=== PATIENT | female | born 1960 ===

== ENCOUNTER 2025-05-09 13:12 | Outpatient (REF) | payer MEDICARE, SELFPAY ==
--- OUTSIDE RECORDS SUMMARY | 2025-05-09 14:20 | XMS_ITS | Clinical Summary ---
Author Organization [facility] Address [address] [place] [address] Phone Care Team Providers Care Anchor Tacker Name Role Phone Vazquez Rubio MD Primary Care Provider [phone] Allergies Active Allergy Reactions Criticality Noted Date Comments Amoxicillin Rash 11/26/2005 Indomethacin Rash 11/26/2005 Other 07/18/2024 Seasonal allergies Pollen Extracts 07/16/2017 Medications albuterol HFA (PROAIR HFA ; PROVENTIL HFA ; VENTOLIN HFA) 90 mcg/actuation inhaler Inhale 2 puffs by mouth. 4 Active cholecalciferol (VITAMIN D-3) 25 mcg (1,000 unit) capsule Take 1 capsule (1,000 Units total) by mouth 1 (one) time each day. 4 Active fluticasone propionate (FLONASE) 50 mcg/actuation nasal spray Sig - Route: 1-2 Sprays by Each Nare route at bedtime as needed for Rhinitis. - Each Nare Sent to pharmacy as: Fluticasone Propionate 50 MCG/ACT Nasal Suspension 4 Active cetirizine (ZyrTEC) 10 mg tablet Take 1 tablet (10 mg total) by mouth 1 (one) time each day. 4 Active citalopram (CeleXA) 40 mg tablet Take 1 tablet (40 mg total) by mouth 1 (one) time each day. 90 tablet 1 5 Active amLODIPine (NORVASC) 5 mg tablet Take 1 tablet (5 mg total) by mouth 1 (one) time each day. 90 tablet 1 5 Active albuterol HFA (PROAIR HFA ; PROVENTIL HFA ; VENTOLIN HFA) 90 mcg/actuation inhaler Inhale 2 puffs by mouth every 6 (six) hours if needed for wheezing or shortness of breath. 6.7 g 5 Active tirzepatide, weight loss, (Zepbound) 2.5 mg/0.5 mL solutionIndicat ions:Class 2 obesity due to excess calories without serious comorbidity with body mass index (BMI) of 37.0 to 37.9 in adult,Essential hypertension,Ob structive sleep apnea Inject 2.5 mg under the skin every 7 (seven) days. 2 mL 5 Active tiZANidine (ZANAFLEX) 2 mg tablet Take 1 tablet (2 mg total) by mouth at bedtime as needed for muscle spasms. 30 tablet 5 Active LORazepam (ATIVAN) 2 mg tablet TAKE 1/2 TABLET BY MOUTH IN THE MORNING AND 1 TABLET BY MOUTH AT BEDTIME NEEDED 42 tablet 5 025 Active LORazepam (ATIVAN) 2 mg tablet TAKE 1/2 TABLET BY MOUTH IN THE MORNING AND 1 TABLET BY MOUTH AT BEDTIME NEEDED 42 tablet 5 025 Discontin ued(Reord er) Active Problems Problem Noted Date Diagnosed Date Known medical problems 07/18/2024 Overview (07/18/2024): Dyspepsia and other specified disorders of function of stomach Class 2 obesity due to exces s calories without serious comorbidity with body mass index (BMI) of 37.0 to 37.9 in adult 07/18/2024 GERD (gastroesophageal reflux disease) 4 Known medical problems 07/18/2024 Overview (07/18/2024): Duodenitis without mention of hemorrhage COVID 06/15/2024 Overview (07/18/2024): Covid + 06/15/24 Anxiety 04/29/2022 Reactive airway disease 04/29/2022 Trouble in sleeping 04/29/2022 Depression 09/26/2020 Multiple thyroid nodules 08/07/2020 Vitamin D deficiency 05/27/2019 Lumbar facet arthropathy 07/21/2018 Lumbar radiculitis 07/21/2018 Allergic rhinitis 03/05/2016 Essential hypertension 02/19/2016 Obstructive sleep apnea 10/06/2011 Overview (06/10/2024): [facility] Home Sleep Apnea Test: Date 06/04/2019; Wt 206#; BMI 34; ALEXIA 7, AI 0.4; HI 6.5; Unclassified apneas 2; Obstructive apneas 1; Central apneas 0; Mixed apneas 0; hypopneas 49; average oxygen saturation 93% (lowest 85% without saturations <88% for 5% or more of study) - Obstructive Sleep Apnea - mild; mostly hypopneas; without sleep related hypoventilation by 2018 home sleep apnea test. Diverticulosis 12/10/2010 Overview (06/10/2024): Incidental finding at colonoscopy 12/10/2010. DJD (degenerative joint disease), lumbar 008 Hematuria 06/03/2006 Overview (06/10/2024): Work up neg 03/29; cytology & Cysto neg Duodenitis 02/10/2006 Overview (06/10/2024): H.pylori; Rx: 01/24 IMO update Gastric diverticulum 02/10/2006 Heartburn 11/26/2005 Encounters Date Type Department Care Team Description 03/30/2025 11:15 AM EDT Office Visit [facility] [address] [facility] [place] [address] Vazquez Rubio MD Anxiety (Primary Dx); Hearing loss of right ear, unspecified hearing loss type; Class 2 obesity due to excess calories without serious comorbidity with body mass index (BMI) of 37.0 to 37.9 in adult; Essential hypertension; Obstructive sleep apnea 03/30/2025 Telephone [facility] [address] [place] [address] Vazquez Rubio MD prior auth 03/30/2025 Telephone [address] [place] [place] [address] Vazquez Rubio MD Medication Problem 02/27/2025 Telephone [address] Medicine [address] [place] [address] Vazquez Rubio MD Results 02/21/2025 3:30 PM EDT Office [address] [facility] [address] [place] [phone] Brice Jonas PA Chronic left ear pain (Primary Dx); Myalgia 02/20/2025 Telephone Pediatrics [address] [address] Vazquez Rubio MD Earache from Last 3 Months Immunizations Name Administration Dates Next Due Influenza Quadravalent, MDCK , 0.5ml, with preservative (Flucelvax) 6mo and older 06/16/2020 Influenza trivalent, 0.5mL, preservative free (Fluarix; FluLaval; Fluzone) ages 6mo and older (Afluria) 3 years and older 11/29/2014,10/07/2012,10/06/2011,2010 Influenza, Unspecified 09/11/2022,11/11/2021 [employer] SARS-CoV-2 COVID-19, mRNA, LNP-S, preservative free 10/03/2021,10/29/2020 Tdap Tetanus diptheria acell ular pertussis (Boostrix; Adacel) 7yo and older 06/10/2018,10/01/2009 Zoster recombinant (Shingrix ) 19yo and older 10/14/2022,09/11/2022 Surgical History Surgery Date Site/Laterality Comments OTHER SURGICAL HISTORY 05/2007 PROCEDURE: MAMMOGRAM; COMMENT: IV; biopsy neg OTHER SURGICAL HISTORY 05/2007 PROCEDURE: PAP SMEAR (1 SLIDE); COMMENT: ; neg OTHER SURGICAL HISTORY PROCEDURE: ND LIG/TRNSXJ FLP TUBE ABDL/VAG APPR UNI/BI ESOPHAGOGASTRODUODENOSCOPY 01/2006 PROCEDURE: ND ESOPHAGOGASTRODUODENOSCOPY TRANSORAL DIAGNOSTIC; COMMENT: Delia Duodenitis COLONOSCOPY 12/10/2010 PROCEDURE: ND COLONOSCOPY FLX DX W/COLLJ SPEC WHEN PFRMD; COMMENT: minimal diverticulosis BREAST BIOPSY 2014 Left PROCEDURE: BX BREAST; PERC NEEDLE CORE W/IMAG GUID; COMMENT: left negative BREAST REDUCTION 11/04/2004 Bilateral PROCEDURE: ND BREAST REDUCTION; COMMENT: Red; reduction OTHER SURGICAL HISTORY PROCEDURE: ND BX BREAST W/DEVICE 1ST LESION STEREOTACTIC GUID; COMMENT: b9 ? which breast TUBAL LIGATION PROCEDURE: HISTORICAL TUBAL LIGATION COLONOSCOPY 12/2020 PROCEDURE: HISTORICAL COLONOSCOPY Medical History Medical History Date Comments Hematuria 06/03/2006 DX:Hematuria Obesity 10/06/2011 DX:Obesity Essential hypertension 02/19/2016 DX:Essent ial hypertension Multiple thyroid nodules 08/07/2020 DX:Mult iple thyroid nodules Depression 09/26/2020 DX:Depression History of Helicobacter pylo ri infection 02/26/2006 DX:History of Helicobacter p ylori infection; COMMENT: Delia 01/2006 History of basal cell carcinoma 02/24/2019 DX:History of basal cell carcinoma; COMMENT: L shoulder. Diverticulosis 12/10/2010 DX:Diverticulosi s; COMMENT: Incidental finding at colonoscopy 12/10/2010. Hematuria 06/03/2006 DX:Hematuria; CO MMENT: Work up neg 03/29; cytology & Cysto neg Family History Medical History Relation Name Comments Lung cancer Father Other cancer Father lung CA, Diabet es Breast cancer Father's side cousin 50s Lung cancer Father's side cousin 50s Hypertension Mother Cataract Breast cancer Mother's side cousin 55 1st cousin Other: Malignancy Other 1 Pat side; lung & GI Lung cancer Paternal Grandfather Blindness Neg Hx Glaucoma Neg Hx Macular degeneration Neg Hx Strabismus Neg Hx Relation Name Status Comments Father Father's side cousin 50s Alive Maternal Grandfather Maternal Grandmother Mother Alive Mother's side cousin 55 Alive Other 1 Other 2 Alive Paternal Grandfather Social History Tobacco Use Types Packs/Day Years Used Date Smoking Tobacco: Former Cigarettes Q uit: 08/21/2010 Smokeless Tobacco: Never Tobacco Cessation:Counseling Given: Not Answered Alcohol Use Standard Drinks/Week Comments No 0 (1 standard drink = 0.6 oz pur e alcohol) Comments No Sex and Gender Information Value Date Recorded Sex Assigned at Not on file Legal Sex Female 9:47 AM EST Gender Identity Not on file Sexual Orientation Not on file Obstetrics History Para Term AB IAB SAB Ectopic Multiple Livin g Live Births 2 2 2 2 Date Outcome GA Total Labor Labor/2nd/3rd Weight Sex Type Anes PTL Lesia A1 A5 Name Clin Term Term Last Filed Vital Signs Vital Sign Reading Time Taken Comments Blood Pressure 123/80 03/30/2025 11:06 AM EDT Pulse 78 03/30/2025 11:06 AM EDT Temperature 36.7 C (98.1 F) 02/21/2025 3:42 PM EDT Respiratory Rate - - Oxygen Saturation 96% 02/21/2025 3:42 PM EDT Inhaled Oxygen Concentration - - Weight 99 kg (218 lb 4.8 oz) 03/30/2025 11:06 AM EDT Height 165.1 cm (5' 5 ) 03/30/2025 11:06 AM EDT Body Mass Index 36.33 03/30/2025 11:06 AM EDT Plan of Treatment Upcoming Encounters Date Type Department Care Team (Late st Contact Info) Description 07/07/2025 5:30 PM EDT Appointment [facility] Scan [address] [place] [address] Health Maintenance Due Date Last Done Comments Pneumococcal Vaccine: 50+ Years (1 of 2 - PCV) 1979 Medicare Annual Wellness Visit 08/30/2022 Depression Screening 09/21/2024 Lung Cancer Screening (Low Dose CT) 07/08/2025 07/08/2024, 03/03/2023 Social Influencers of Health Screening 09/28/2025 09/28/2024 Colorectal Cancer Screening: Colonoscopy 01/02/2026 01/02/2021 Hypertension/CHF/CAD Annual BMP Blood Test 02/23/2026 02/23/2025, 09/28/2024, 10/22/2023 Breast Cancer Screening 10/14/2026 10/14/19 25, 10/13/2023, 08/15/2022, Additional history exists Cervical Cancer Screening: HPV 02/07/2028 02/06/2023 DTaP,Tdap,and Td Vaccines (3 - Td or Tdap) 06/10/2028 06/10/2018, 10/01/2009 Cholesterol Screening (Lipid Panel) 09/28/2029 09/28/2024, 12/02/2022 Hepatitis C Screening Completed 11/28/2013 COVID-19 Vaccine Discontinued 10/03/2021, 04/2021, 10/29/2020 Zoster Vaccines Completed 10/14/2022, 08/22, 06/30/2022 Influenza Vaccine Discontinued 09/26/2023, , 06/30/2022, Additional history exists RSV Immunization Adult Patients Completed 09/26/2023 HIB Vaccines Aged Out No longer eligi ble based on patient's age to complete this topic HIV Screening Discontinued HPV Vaccines Aged Out No longer eligi ble based on patient's age to complete this topic Hepatitis A Vaccines Aged Out No long er eligible based on patient's age to complete this topic Hepatitis B Vaccines Aged Out No long er eligible based on patient's age to complete this topic IPV Vaccines Aged Out No longer eligi ble based on patient's age to complete this topic MMR Vaccines Aged Out No longer eligi ble based on patient's age to complete this topic Meningococcal ACWY Vaccine Aged Out N o longer eligible based on patient's age to complete this topic Meningococcal B Vaccine Aged Out No l onger eligible based on patient's age to complete this topic RSV Immunization Patients Under 20 months Aged Out No longer eligible based on patient's age to complete this topic Varicella Vaccines Aged Out No longer eligible based on patient's age to complete this topic Procedures Procedure Name Priority Date/Time Associated Diagnosis Comments CBC WITH AUTO DIFFERENTIAL Routine 02/23/2025 3:13 PM EDT Chronic left ear pain Myalgia CBC AND DIFFERENTIAL Routine 02/23/2025 3:13 PM EDT Chronic left ear pain Myalgia COMPREHENSIVE METABOLIC PANEL Routine 02/23/2025 3:13 PM EDT Chronic left ear pain Myalgia THYROID STIMULATING HORMONE WITH REFLEX TO FREE T4 AND FREE T3 Routine 02/23/2025 3:13 PM EDT Chronic left ear pain Myalgia BORRELIA BURGDORFERI ANTIBODY Routine 02/23/2025 3:13 PM EDT Chronic left ear pain Myalgia JD IFA WITH TITER AND PATTERN Routine 02/23/2025 3:13 PM EDT Chronic left ear pain Myalgia C-REACTIVE PROTEIN Routine 02/23/2025 3: 13 PM EDT Chronic left ear pain Myalgia POC RAPID [id number], MOLECULAR Routine 02/21/2025 4:21 PM EDT Chronic left ear pain MG MAMMO DIGITAL SCREENING W AMANDEEP BILAT Routine 10/14/2024 2:52 PM EST Encounter for screening mammogram for breast cancer LIPID PANEL WITH REFLEX TO DIRECT LDL Routine 09/28/2024 3:41 PM EST Mixed hyperlipidemia CT LUNG SCREENING LOW DOSE Routine 07/08/2024 9:49 AM EDT Encounter for screening for malignant neoplasm of respiratory organs HM HPV Routine 02/06/2023 COLONOSCOPY Routine 01/02/2021 HEPATITIS C SCREENING Routine 11/28/2013 from Last 3 Months or Most Recently Relevant to Health Maintenance Results * Thyroid stimulating hormone with reflex to free t4 and free t3 (02/23/2025 3:13 PM EDT) TSH 1.04 0.40 - 4.00 mcIU/mL LAB CHEMISTRY METHOD 02/23/2025 7:19 PM EDT [facility] Blood Venous blood specimen / Unknown Venipuncture / Unknown 02/23/2025 3:13 PM EDT 02/23/2025 3:13 PM EDT Brice GALLEGOS LAB BLOOD ORDERABLES Final Result Performing Organization Address City/[facility]/ZIP Co de Phone Number [facility] [address] [place] [address], [place] [phone] * JD IFA with titer and pattern (02/23/2025 3:13 PM EDT) [facility] JD Negative Negative 02/24/2025 2:50 PM EDT [facility] Blood Venous blood specimen / Unknown Venipuncture / Unknown 02/23/2025 3:13 PM EDT 02/23/2025 3:13 PM EDT Brice GALLEGOS LAB BLOOD ORDERABLES Final Result Performing Organization Address [facility]/ZIP Co de Phone Number [facility] [address] [place] [address], [place] [phone] * (ABNORMAL) CBC auto differential (02/23/2025 3:13 PM EDT) [facility] WBC 6.5 4.8 - 10.8 K/mcL LAB HEMETOLOGY METHOD 02/23/2025 6:44 PM EDT [facility] RBC 4.50 3.80 - 4.80 M/mcL LAB HEMETOLOGY METHOD 02/23/2025 6:44 PM EDT [facility] Hemoglobin 13.1 11.5 - 16.0 g/dL LAB HEMETOLOGY METHOD 02/23/2025 6:44 PM EDT [facility] Hematocrit 41.1 35.0 - 47.0 % LAB HEMETOLOGY METHOD 02/23/2025 6:44 PM EDT [facility] MCV 90.5 79.0 - 98.0 FL LAB HEMETOLOGY METHOD 02/23/2025 6:44 PM EDT [facility] MCH 28.9 27.0 - 32.0 pcg LAB HEMETOLOGY METHOD [facility] MCHC 31.9(L) 32.0 - 37.0 g/dL LAB HEMETOLOGY METHOD 02/23[facility]2025 [facility] RDW 13.8 11.0 - 15.0 % LAB HEMETOLOGY METHOD 02/23[facility]2025 6[facility] Platelets 367 130 - 400 K/mcL LAB HEMETOLOGY METHOD 02/23[facility]2025 6[facility] MPV 10.3 7.0 - 11.0 FL LAB HEMETOLOGY METHOD 02/23[facility]2025 [facility] NRBC 0.0 <1.0 % LAB HEMETOLOGY METHOD 02/23/2025 6:44 PM [facility] NRBC Absolute 0.00 <0.10 K/mcL LAB HEMETOLOGY METHOD 02/23[facility]2025 [facility] Neutrophils Relative 52.2 % LAB HEMETOLOGY METHOD 02/23/2025 6:44 PM [facility] Lymphocytes Relative 36.5 % LAB HEMETOLOGY METHOD 02/23/2025 6:44 PM [facility] Monocytes Relative 7.7 % LAB HEMETOLOGY METHOD 02/23/2025 6:44 PM [facility] Eosinophils Relative 2.5 % LAB HEMETOLOGY METHOD 02/23/2025 6:44 PM [facility] Basophils Relative 0.6 % LAB HEMETOLOGY METHOD 02/23[facility]2025 [facility] Immature Granulocytes Relative 0.5 % LAB HEMETOLOGY METHOD 02/23/2025 6:44 PM [facility] Neutrophils Absolute 3.39 1.50 - 7.00 K/mcL LAB HEMETOLOGY METHOD 02/23/2025 6:44 PM EDT [facility] Lymphocytes Absolute 2.37 1.00 - 5.00 K/mcL LAB HEMETOLOGY METHOD 02/23/2025 6:44 PM EDT [facility] Monocytes Absolute 0.50 0.20 - 1.00 K/mcL LAB HEMETOLOGY METHOD 02/23/2025 6:44 PM EDT [facility] Eosinophils Absolute 0.16 0.00 - 0.50 K/mcL LAB HEMETOLOGY METHOD 02/23/2025 6:44 PM EDT [facility] Basophils Absolute 0.04 0.00 - 0.20 K/mcL LAB HEMETOLOGY METHOD 02/23/2025 6:44 PM EDT [facility] Immature Granulocytes Absolute 0.03 0.00 - 0.03 K/mcL LAB HEMETOLOGY METHOD 02/23/2025 6:44 PM EDT [facility] Blood Venous blood specimen / Unknown Venipuncture / Unknown 02/23/2025 3:13 PM EDT 02/23/2025 3:13 PM EDT Brice GALLEGOS LAB BLOOD ORDERABLES Final Result [facility] [address] [place] [address], * Borrelia burgdorferi antibody (02/23/2025 3:13 PM EDT) [facility] Lyme Ab Negative Negative LAB CHEMISTRY METHOD 02/24/2025 10:45 AM EDT [facility] Comment: No laboratory evidence of infection with B. burgdorferi (Lyme disease). Negative results may occur in patients recently infected (<=14 days) with B. burgdorferi. If recent infection is suspected, repeat testing on a new sample collected in 7- 14 days is recommended. Blood Venous blood specimen / Unknown Venipuncture / Unknown 02/23/2025 3:13 PM EDT 02/23/2025 3:13 PM EDT us Brice GALLEGOS LAB BLOOD ORDERABLES Final Result Performing Organization Address [facility]/ZIP Co de Phone Number [facility] [address] [place] [address], [place] [phone] * (ABNORMAL) C-reactive protein (02/23/2025 3:13 PM EDT) [facility] C-Reactive Protein 0.67(H) <=0.50 mg/dL LAB CHEMISTRY METHOD 02/23/2025 7:07 PM EDT [facility] Blood Venous blood specimen / Unknown Venipuncture / Unknown 02/23/2025 3:13 PM EDT 02/23/2025 3:13 PM EDT Brice GALLEGOS LAB BLOOD ORDERABLES Final Result Performing Organization Address [facility] Co de Phone Number [facility] [address] [place] [address], [place] [phone] * Comprehensive metabolic panel (02/23/2025 3:13 PM EDT) [facility] Sodium 142 133 - 145 mmol/L LAB CHEMISTRY METHOD 02/23/2025 7:13 PM EDT [facility] Potassium 4.5 3.5 - 5.5 mmol/L LAB CHEMISTRY METHOD 02/23/2025 7:13 PM EDT [facility] Chloride 107 96 - 110 mmol/L LAB CHEMISTRY METHOD 02/23/2025 7:13 PM EDT [facility] CO2 27 21 - 32 mmol/L LAB CHEMISTRY METHOD 02/23/2025 7:13 PM EDT [facility] Anion Gap 8 3 - 11 LAB CHEMISTRY METHOD 02/23/2025 7:13 PM EDT [facility] Glucose 92 70 - 100 mg/dL LAB CHEMISTRY METHOD 02/23/2025 7:13 PM [facility] BUN 12 5 - 25 mg/dL LAB CHEMISTRY METHOD 02/23/2025 7:13 PM [facility] Creatinine 0.94 0.50 - 1.10 mg/dL LAB CHEMISTRY METHOD 02/23/2025 7:13 PM [facility] eGFR 68 >=60 mL/min/1. 73m2 LAB CHEMISTRY METHOD 02/23/2025 7:13 PM [facility] Comment:Calculation based on the Chronic Kidney Disease Epidemiology Collaboration (CKD-EPI) equation refit without adjustment for race. BUN/Creatinine Ratio 12.8 LAB CHEMISTRY METHOD 02/23/2025 7:13 PM [facility] Calcium 9.3 8.5 - 10.5 mg/dL LAB CHEMISTRY METHOD 02/23/2025 7:13 PM [facility] AST (SGOT) 16 10 - 42 unit/L LAB CHEMISTRY METHOD 02/23/2025 7:13 PM [facility] ALT (SGPT) 19 10 - 60 unit/L LAB CHEMISTRY METHOD 02/23/2025 7:13 PM [facility] Alkaline Phosphatase 111 42 - 121 unit/L LAB CHEMISTRY METHOD 02/23/2025 7:13 PM [facility] Total Protein 7.0 6.0 - 8.0 g/dL LAB CHEMISTRY METHOD 02/23/2025 7:13 PM [facility] Albumin 4.0 3.2 - 5.0 g/dL LAB CHEMISTRY METHOD 02/23/2025 7:13 PM [facility] Total Bilirubin 0.3 0.0 - 1.4 mg/dL LAB CHEMISTRY METHOD 02/23/2025 7:13 PM [facility] Blood Venous blood specimen / Unknown Venipuncture / Unknown 02/23/2025 3:13 PM EDT 02/23/2025 3:13 PM EDT Brice GALLEGOS LAB BLOOD ORDERABLES Final Result [facility] ([facility]) [facility] [address] [place] [address], * Poc Rapid [id number], MOLECULAR (02/21/2025 4:21 PM EDT) COVID-19/SARS- COV-2 Rapid POC Negative Negative Swab Nasopharyngeal structure / Unknown 02/21/2025 4:21 PM EDT Brice GALLEGOS POINT OF CARE TEST ENTER/E DIT ORDERABLES Final Result * MG Mammo Digital Screening w Amandeep bilat (10/14/2024 2:52 PM EST) Anatomical Region Laterality Modality Breast Bilateral Mammography 10/17/2024 2:34 PM EST Impressions 10/17/2024 3:07 PM EST 1. No mammographic evidence of malignancy 2. Scattered fibroglandular tissue BI-RADS CATEGORY: 2 - BENIGN RECOMMENDATION: Screening bilateral mammogram is recommended in 1 year. Mammo Location: [facility], [address] [place] [address], [id number], . -------- FINAL REPORT -------- Dictated By: Jony Mcfarland Dictated Date: 10/17/2024 14:34 ET Assigned Physician: Jony Mcfarland Reviewed and Electronically Signed By: Jony Mcfarland Signed Date: 10/17/2024 15:07 ET Workstation ID: [id number] Transcribed By: Self Edit Transcribed Date: 10/17/2024 14:42 ET Narrative 10/17/2024 3:07 PM EST A BILATERAL DIGITAL 3D SCREENING MAMMOGRAPHY HISTORY: Routine screening. Family history of breast cancer COMPARISON: Multiple priors dating back to 08/07/2020 Technique: Bilateral full field digital mammography (3D) was performed using standard CC and MLO projections CAD was used to evaluate this mammogram. FINDINGS: Right: No suspicious masses, groups of microcalcification or areas of architectural distortion identified. Stable typically benign parenchymal asymmetries. Left: No suspicious masses, groups of microcalcification or areas of architectural distortion identified. Stable typically benign parenchymal asymmetries. Retroareolar biopsy marker BREAST DENSITY: B - There are scattered areas of fibroglandular density. Procedure Note Jony Mcfarland MD - 10/17/2024 A BILATERAL DIGITAL 3D SCREENING MAMMOGRAPHY HISTORY: Routine screening. Family history of breast cancer COMPARISON: Multiple priors dating back to 08/07/2020 Technique: Bilateral full field digital mammography (3D) was performedusing standard CC and MLO projections CAD was used to evaluate this mammogram. FINDINGS: Right: No suspicious masses, groups of microcalcification or areas ofarchitectural distortion identified. Stable typically benign parenchymalasymmetries. Left: No suspicious masses, groups of microcalcification or areas ofarchitectural distortion identified. Stable typically benign parenchymalasymmetries. Retroareolar biopsy marker BREAST DENSITY: B - There are scattered areas of fibroglandular density. IMPRESSION: 1. No mammographic evidence of malignancy 2. Scattered fibroglandular tissue BI-RADS CATEGORY: 2 - BENIGN RECOMMENDATION: Screening bilateral mammogram is recommended in 1 year. Mammo Location: [facility], [address] [place] [address], [id number], . -------- FINAL REPORT -------- Dictated By: Jony Mcfarland Dictated Date: 10/17/2024 14:34 ET Assigned Physician: Jony Mcfarland Reviewed and Electronically Signed By: Jony Mcfarland Signed Date: 10/17/2024 15:07 ET Workstation ID: [id number] Transcribed By: Self Edit Transcribed Date: 10/17/2024 14:42 ET us Vazquez Rubio MD IMG BI PROCEDURES Final Result * (ABNORMAL) Lipid panel with reflex to direct LDL (09/28/2024 3:41 PM EST) Cholesterol 245(H) 0 - 200 mg/dL LAB CHEMISTRY METHOD 09/28/2024 6:[address] [facility] Triglycerides 64 0 - 150 mg/dL LAB CHEMISTRY METHOD 09/28/2024 6:[address] [facility] HDL 75 >=40 mg/dL LAB CHEMISTRY METHOD 09/28/2024 6:[address] [facility] LDL Calculated 157(H) 0 - 100 mg/dL LAB CHEMISTRY METHOD 09/28/2024 6:[address] [facility] VLDL Cholesterol Yoseph 12.8 mg/dL LAB CHEMISTRY METHOD 09/28/2024 6:[address] [facility] Non HDL Chol. (LDL+VLDL) 170(H) <145 mg/dL LAB CHEMISTRY METHOD 09/28/2024 6:[address] [facility] Chol/HDL Ratio 3.3 0.0 - 4.4 LAB CHEMISTRY METHOD 09/28/2024 6:[address] [facility] Blood Venous blood specimen / Unknown Venipuncture / Unknown 09/28/2024 3:41 PM EST 09/28/2024 3:41 PM EST us Vazquez Rubio MD LAB BLOOD ORDERABLES Final Resu lt [facility] [address] [place] [address], * CT LUNG SCREENING LOW DOSE (07/08/2024 9:49 AM EDT) Anatomical Region Laterality Modality Computed Tomogra phy 07/07/2024 3:07 PM EDT Narrative 07/08/2024 9:49 AM EDT [facility] Diagnostic Imaging Department [address] [place] [address] Patient: ROSALINDA NARVAEZ /Age/Sex: 1960 - 63 - F Unit#: [id number] Location/Status: SPDICATLS/REG CLI Mnemonic/Ordering Site: [facility] Ordering Physician: CARRILLO CALDERON MD CT Lung Screening Low Dose - 07/07/24 - 1513 Report Status:Signed PROCEDURE: CT chest lung cancer screening low dose examination. INDICATION: CT lung screening. TECHNIQUE: Chest CT without intravenous contrast was performed. Low-dose examination was performed. Reformatted images were evaluated. DOSE: CTDIvol: 4.8mGy. Total exam DLP: 163.1mGy-cm COMPARISON: CT chest February 2023 FINDINGS: NODULES: No significant nodules are identified. LUNGS: No significant emphysematous changes. OTHER: Limited views of the upper abdomen appear normal. Mediastinum appears within normal limits. Coronary atherosclerotic disease. Mild atherosclerotic disease of the aorta without aneurysm. Minimal degenerative changes in the spine. IMPRESSION: No significant nodules identified. Lung-RADS 1. Follow up examination is advised in one year. Dictating Physician: YONY HYMAN MD Electronically Signed by: YONY HYMAN MD Dic Date/Time: 07/08/2445 Sign date/Time: 07/08/24948 Procedure Note Yony Hyman MD - 07/19/2024 [facility] Diagnostic Imaging Department [address] [place] [address] Patient: ROSALINDA NARVAEZ Abdias /Age/Sex: 1960 - 63 - F Unit#: [id number] Location/Status: SPDICATLS/REG CLI Mnemonic/Ordering Site: [facility] Ordering Physician: CARRILLO CALDERON MD CT Lung Screening Low Dose - 07/07/24 - 1513 Report Status:Signed PROCEDURE: CT chest lung cancer screening low dose examination. INDICATION: CT lung screening. TECHNIQUE: Chest CT without intravenous contrast was performed.Low-dose examination was performed. Reformatted images were evaluated. DOSE: CTDIvol: 4.8mGy. Total exam DLP: 163.1mGy-cm COMPARISON: CT chest February 2023 FINDINGS: NODULES: No significant nodules are identified. LUNGS: No significant emphysematous changes. OTHER: Limited views of the upper abdomen appear normal. Mediastinumappears within normal limits. Coronary atherosclerotic disease. Mildatherosclerotic disease of the aorta without aneurysm. Minimal degenerative changes inthe spine. IMPRESSION: No significant nodules identified. Lung-RADS 1. Follow up examination is advised in one year. Dictating Physician: YONY HYMAN MD Electronically Signed by: YONY HYMAN MD Dic Date/Time: 07/08/2445 Sign date/Time: 07/08/2449 Carrillo Calderon MD [facility] PROCEDURES Final Result * Cervical Cancer Screening: HPV (02/06/2023) Cervical Cancer Screening: HPV negative, abstracted Historical Provider HEALTH MAINTENANCE Final Result * Colonoscopy (01/02/2021) Pathologist [facility] Colonoscopy completed Anatomical Region Laterality Modality Other Historical Provider HEALTH MAINTENANCE Final Result * Hepatitis C Screening (11/28/2013) Hepatitis C Screening negative Historical Provider HEALTH MAINTENANCE Final Result from Last 3 Months or Most Recently Relevant to Health Maintenance Insurance [place] MEDIC[place] ADVANTAGE Care 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
== END 2025-05-09 13:13 | disposition home or self-care (01) ==
LOC: HO.SH 13:12
PROVIDERS: Visit Provider Internal Medicine
DX: Z01.118 Encounter for examination of ears and hearing with other abnormal findings (principal); H90.41 Sensorineural hearing loss, unilateral, right ear, with unrestricted hearing on the contralateral side
CPT/HCPCS: 92557; 92567